=== PATIENT | female | born 1970 | race Two or more races ===

== ENCOUNTER 2019-05-12 09:42 | Emergency (ER) | payer OTHER ==
[2019-05-12 10:00] VITALS: BP 182/100
--- NOTE | 2019-05-12 10:40 | RAD ---
Exam performed: Right finger 3 views including 3 views. Indication: Cut finger 6 weeks . Date of Service: 05/12/2019 Comparison: None available Discussion: PA, oblique lateral radiographs of the forth digit and one view hand reveals the osseous structures to be intact and well aligned. The joint spaces are well-preserved. The articular margins are smooth. No soft tissue swelling or foreign bodies detected. Impression: Negative exam. Electronically signed by: Baylee Coulter MD (05/12/2019 10:37 AM) [facility]
[2019-05-12] MEDS ORDERED: TRIA15OI TP (10:42)
[2019-05-12] MEDS ORDERED: SULF1TAB24 PO (10:42)
--- NOTE | 2019-05-12 10:42 | PHYS DOC ---
Past History Past Medical History: GERD, Hypertension Past Surgical History: No Surgical History Alcohol Use: None Drug Use: None Adult General Chief Complaint Chief Complaint: FINGER INJURY HPI HPI Patient is a 48-year-old female who presents with complaint of pain and injury to her right fourth finger after cutting it about 6 weeks ago. Patient was scrubbing the floor and caught her finger against something sharp. Patient states that pain is getting worse over time. She denies any fever. Patient also complains of patch of skin on her elbow that is very dry and itches a lot.[] Review of Systems Review of Systems Constitutional: Denies fever or chills [] Respiratory: Denies cough or shortness of breath [] Cardiovascular: No additional information not addressed in HPI [] Musculoskeletal: Positive right fourth finger pain [] Integument: Positive rash right elbow[] Allergies Allergies Allergies Coded Allergies Type Severity Reaction Last Updated Verified No Known Drug Allergies 05/12/19 No Physical Exam Physical Exam Constitutional: Well developed, well nourished, no acute distress, non-toxic appearance. [] Cardiovascular:Heart rate regular rhythm, no murmur [] Lungs & Thorax: Bilateral breath sounds clear to auscultation [] Skin: Right elbow demonstrates patch of skin that is thickened with mild excoriations. Right ring finger demonstrates an area of avulsed skin that is healing with dried granulation tissue present with tenderness to palpation. [] Current Patient Data Vital Signs Vital Signs Date Time Temp Pulse Resp B/P (MAP) Pulse Ox O2 Delivery O2 Flow Rate FiO2 05/12/19 10:00 72 18 100 Room Air EKG EKG [] Radiology/Procedures Radiology/Procedures [] Course & Med Decision Making Course & Med Decision Making Pertinent Labs and Imaging studies reviewed. (See chart for details) [] Dragon Disclaimer Dragon Disclaimer This electronic medical record was generated, in whole or in part, using a voice recognition dictation system. Departure Departure: Impression: Primary Impression: Avulsion, finger tip Additional Impression: Eczema Disposition: 01 HOME, SELF-CARE Condition: STABLE Referrals: PCP,NO (PCP) Patient Instructions: Deep Skin Avulsion, Eczema Scripts Triamcinolone Acetonide (TRIAMCINOLONE ACETONIDE) 15 Gm Oint...g. 1 ASMITA TP BID for rash, #15 GM Prov: CAILIN SALES Jr. DO 05/12/19 Sulfamethoxazole/Trimethoprim (BACTRIM DS TABLET) 1 Each Tablet 1 TAB PO BID for infection for 10 Days, #20 TAB 0 Refills Prov: CAILIN SALES Jr. DO 05/12/19 Problem Qualifiers Primary Impression: Avulsion, finger tip Encounter type: sequela Qualified Codes: S61.209S - Unspecified open wound of unspecified finger without damage to nail, sequela Additional Impression: Eczema Eczema type: unspecified Qualified Codes: L30.9 - Dermatitis, unspecified CAILIN SALES Jr. DO May 12, 2019 10:42
== END 2019-05-12 10:46 | disposition home or self-care (01) ==
LOC: ER 09:42
DX: S61.304A Unspecified open wound of right ring finger with damage to nail, initial encounter (principal); L30.9 Dermatitis, unspecified; I10 Essential (primary) hypertension; K21.9 Gastro-esophageal reflux disease without esophagitis; W26.8XXA Contact with other sharp object(s), not elsewhere classified, initial encounter; Y93.89 Activity, other specified; Y92.89 Other specified places as the place of occurrence of the external cause; Y99.8 Other external cause status
CPT/HCPCS: 73140; 99284